=== PATIENT | male | born 1985 | race Caucasian/White ===

== ENCOUNTER 2025-07-19 11:07 | Emergency (ER) | payer SELFPAY ==
[2025-07-19] MEDS: Dexamethasone Sod Phos Preservative Free 10 MG/ML Vial IM ONE (12:04)
[2025-07-19] MEDS: Triamcinolone Acetonide 40 MG/ML 1 ML SDV IARTIC ONE (12:04)
[2025-07-19] MEDS: Acetaminophen/HYDROcodone 325-5 MG Tab PO ONE (12:04)
[2025-07-19] MEDS: Ondansetron 4 MG Tab.DIS PO ONE (12:42)
== END 2025-07-19 14:10 | disposition home or self-care (01) ==
LOC: MW.ED 11:07
DX: M10.9 Gout, unspecified (principal); Z79.899 Other long term (current) drug therapy
CPT/HCPCS: 20610; 99283; 99283-25; A9270-GY; J1100; J2003; J3301